=== PATIENT | male | born 1955 | race African-American/Black ===

== ENCOUNTER 2017-07-28 12:08 | Inpatient (IN) | payer MEDICAID ==
[~2017-07-28] VITALS: Ht 175.3 cm; Wt 95.6 kg
[2017-07-28 12:48] LABS: GLUCOSE,POINT OF CARE 128 MG/DL (70-110)
[2017-07-28] MEDS ORDERED: IPRATROPIUM BROMIDE 0.5 MG/2.5 ML NEB SOLUTION NEB ONE (13:15)
[2017-07-28] MEDS ORDERED: ALBUTEROL SULFATE HFA 90 MCG/PUFF 8 GM INHALER IH ONE (13:15)
[2017-07-28] MEDS ORDERED: OSELTAMIVIR PHOSPHATE 75 MG CAPSULE PO ONE (13:15)
[2017-07-28] MEDS ORDERED: ALBUTEROL SULFATE 2.5 MG/0.5 ML NEB SOLUTION NEB ONE (13:15)
[2017-07-28 13:16] LABS: BASOPHILS % (AUTO) 0.2 % (0.0-2.0); EOSINOPHILS % (AUTO) 0.1 % (1.0-6.0); HEMATOCRIT 47.4 % (41-53); HEMOGLOBIN 16.3 g/dL (13.5-17.5); LYMPHOCYTES # (AUTO) 1.4 K/uL (1.0-4.8); LYMPHOCYTES % (AUTO) 14.4 % (22.0-44.0); MEAN CORPUSCULAR HEMOGLOBIN 28.6 pg (26.0-34.0); MEAN CORPUSCULAR HGB CONC 34.4 G/dL (31.0-37.0); MEAN CORPUSCULAR VOLUME 83 fL (80-100); MONOCYTES # (AUTO) 0.7 K/uL (0.1-1.0); NEUTROPHILS # (AUTO) 7.4 K/uL (1.8-7.7); NEUTROPHILS % (AUTO) 78.3 % (40.0-70.0); PLATELET COUNT (AUTO) 171 K/uL (150-450); RED BLOOD CELL COUNT(AUTO) 5.68 MIL/uL (4.50-5.90); RED CELL DISTRIBUTION WIDTH 14.4 % (11.5-14.5)
[2017-07-28 13:22] LABS: CALCIUM, TOTAL 9.3 mg/dL (8.8-10.5); CREATININE 1.65 mg/dL (0.60-1.30)
[2017-07-28 13:27] LABS: BILIRUBIN,TOTAL 0.8 mg/dL (0.1-1.0); TOTAL PROTEIN, SERUM 8.6 g/dL (6.4-8.2)
[2017-07-28 13:40] LABS: INFLUENZA TYPE A NEGATIVE FOR TYPE A (NEGATIVE); INFLUENZA TYPE B NEGATIVE FOR TYPE B (NEGATIVE)
[2017-07-28 14:18] LABS: ALBUMIN 2.8 g/dL (3.4-5.0)
[2017-07-28] MEDS ORDERED: SODIUM CHLORIDE 0.9% 1,000 ML IV ONE ×2 (14:30→15:45)
[2017-07-28] MEDS ORDERED: LEVOFLOXACIN 750 MG/D5% WATER 150 ML IV ONE (14:30)
[2017-07-28] MEDS ORDERED: ACETAMINOPHEN 325 MG TABLET PO PRN ×2 (14:45→15:45)
[2017-07-28] MEDS ORDERED: ONDANSETRON HCL 4 MG/2 ML VIAL IVP PRN ×2 (14:45→15:45)
[2017-07-28] MEDS ORDERED: 0.9% SODIUM CHLORIDE 10 ML SYRINGE IVP PRN (14:45)
[2017-07-28 15:07] LABS: MAGNESIUM 2.3 mg/dL (1.80-2.40); PHOSPHORUS 2.5 mg/dL (2.5-4.9)
[2017-07-28] MEDS ORDERED: IPRATROPIUM BROMIDE 0.5 MG/2.5 ML NEB SOLUTION NEB PRN (15:45)
[2017-07-28] MEDS ORDERED: MAGNESIUM HYDROXIDE SUSPENSION 30 ML UDCUP PO PRN (15:45)
[2017-07-28] MEDS ORDERED: ZOLPIDEM TARTRATE 5 MG TABLET PO PRN (15:45)
[2017-07-28] MEDS ORDERED: ALBUTEROL SULFATE 2.5 MG/0.5 ML NEB SOLUTION NEB PRN (15:45)
[2017-07-28] MEDS ORDERED: MORPHINE SULFATE 4 MG/ML SYRINGE IVP PRN (15:45)
[2017-07-28] MEDS ORDERED: HYDROCODONE/ACETAMINOPHEN 5-325 MG TABLET PO PRN (15:45)
[2017-07-28] MEDS ORDERED: BISACODYL 10 MG RECTAL RECTAL SUPPOSITORY PR PRN (15:45)
[2017-07-28] MEDS: HEPARIN SODIUM,PORCINE 5,000 UNITS/ML VIAL SQ SCH (16:03)
[2017-07-28] MEDS: OSELTAMIVIR PHOSPHATE 75 MG CAPSULE PO SCH (22:30)
[2017-07-28] MEDS: DOCUSATE SODIUM 100 MG CAPSULE PO SCH (22:30)
[2017-07-29 01:19] VITALS: BP 134/67
[2017-07-29] MEDS: HEPARIN SODIUM,PORCINE 5,000 UNITS/ML VIAL SQ SCH ×2 (01:26→08:40)
[2017-07-29] MEDS ORDERED: INFLUENZA VIRUS VACCINE QVS 2017-18 (3YR+)/PF 60 MCG/0.5 ML SYRINGE IM ONE (01:45)
[2017-07-29] MEDS ORDERED: PNEUMOCOCCAL VACCINE POLYVALENT 0.5 ML VIAL [PPSV23] IM ONE (01:45)
[2017-07-29 05:12] VITALS: BP 122/72
[2017-07-29 07:08] LABS: BASOPHILS % (AUTO) 0.2 % (0.0-2.0); EOSINOPHILS % (AUTO) 0.2 % (1.0-6.0); HEMOGLOBIN 14.1 g/dL (13.5-17.5); LYMPHOCYTES # (AUTO) 2.1 K/uL (1.0-4.8); LYMPHOCYTES % (AUTO) 24.6 % (22.0-44.0); MEAN CORPUSCULAR HEMOGLOBIN 28.5 pg (26.0-34.0); MEAN CORPUSCULAR HGB CONC 34.4 G/dL (31.0-37.0); MEAN CORPUSCULAR VOLUME 83 fL (80-100); MONOCYTES # (AUTO) 0.9 K/uL (0.1-1.0); MONOCYTES % (AUTO) 10.4 % (2.0-9.0); NEUTROPHILS # (AUTO) 5.4 K/uL (1.8-7.7); NEUTROPHILS % (AUTO) 64.6 % (40.0-70.0); PLATELET COUNT (AUTO) 170 K/uL (150-450); RED BLOOD CELL COUNT(AUTO) 4.94 MIL/uL (4.50-5.90); RED CELL DISTRIBUTION WIDTH 14.3 % (11.5-14.5)
[2017-07-29 07:35] VITALS: BP 120/75
[2017-07-29 07:43] LABS: ALANINE AMINOTRANSFERASE 65 U/L (12-78); ALBUMIN 2.4 g/dL (3.4-5.0); ALKALINE PHOSPHATASE 55 U/L (46-116); ANION GAP 8 mmol/L (8-16); ASPARTATE AMINOTRANSFERASE 61 U/L (15-37); BILIRUBIN,TOTAL 0.6 mg/dL (0.1-1.0); CALCIUM, TOTAL 8.5 mg/dL (8.8-10.5); CARBON DIOXIDE 26 mmol/L (22-29); CHLORIDE 105 mmol/L (98-107); CREATININE 1.25 mg/dL (0.60-1.30); GLOMERULAR FILTR. RATE CALC > 60 mL/min (>60); GLUCOSE,RANDOM 89 mg/dL (70-110); POTASSIUM 3.9 mmol/L (3.5-5.1); SODIUM SERUM 139 mmol/L (136-145); UREA NITROGEN, BLOOD 18 mg/dL (7-18)
[2017-07-29] MEDS: DOCUSATE SODIUM 100 MG CAPSULE PO SCH (08:40)
[2017-07-29] MEDS ORDERED: PANTOPRAZOLE SODIUM 40 MG DR TABLET PO SCH (09:00)
[2017-07-29] MEDS: OSELTAMIVIR PHOSPHATE 75 MG CAPSULE PO SCH (09:10)
[2017-07-29 11:37] VITALS: BP 138/59
[2017-07-29] MEDS ORDERED: OSEL75 PO (12:29)
[2017-07-29] MEDS ORDERED: LEVO500 PO (12:29)
[2017-07-29] MEDS ORDERED: LEVOFLOXACIN 750 MG/D5% WATER 150 ML IV SCH (14:00)
== END 2017-07-29 14:04 | disposition home or self-care (01) | DRG 139 ==
LOC: EMS 12:10 → 6N 23:30
PROVIDERS: ADMIT Internal Medicine; ATTEND Internal Medicine
PROC: 3E0234Z Introduction of Serum, Toxoid and Vaccine into Muscle, Percutaneous Approach (ICD-10-PCS; principal; 2017-07-29)
PROC: 3E0234Z Introduction of Serum, Toxoid and Vaccine into Muscle, Percutaneous Approach (ICD-10-PCS; 2017-07-29)
DX: J18.9 Pneumonia, unspecified organism (principal); N17.0 Acute kidney failure with tubular necrosis; R73.9 Hyperglycemia, unspecified; F17.210 Nicotine dependence, cigarettes, uncomplicated; Z71.6 Tobacco abuse counseling; Z23 Encounter for immunization
CPT/HCPCS: 71046; 82962; 83735; 84100; 87040; 87804; 90471; 93005; 94640; J1644; J1956; J3535; J7030

== ENCOUNTER 2023-03-02 09:03 | Emergency (ER) | payer MEDICARE, OTHER ==
[~2023-03-02] VITALS: Ht 177.8 cm; Wt 99.0 kg
[~2023-03-02 09:03] MED LIST: LEVO-72 PO; OSEL75 PO
[2023-03-02 09:09] VITALS: TEMP 98.2
[2023-03-02] MEDS ORDERED: KETOROLAC TROMETHAMINE 60 MG/2 ML VIAL IM ONE (09:45)
[2023-03-02] MEDS ORDERED: METHOCARBAMOL 500 MG TABLET PO ONE (09:45)
[2023-03-02] MEDS ORDERED: METH-659 PO (11:30)
[2023-03-02] MEDS ORDERED: IBUP-1492 PO (11:30)
[2023-03-02] MEDS ORDERED: PERCT PO (11:31)
[2023-03-02 11:45] VITALS: BP 150/82; PULSE 65; RESP 12
== END 2023-03-02 11:51 | disposition home or self-care (01) ==
LOC: EMS 09:04
DX: S29.011A Strain of muscle and tendon of front wall of thorax, initial encounter (principal); F17.210 Nicotine dependence, cigarettes, uncomplicated; X58.XXXA Exposure to other specified factors, initial encounter; Y93.89 Activity, other specified; Y92.89 Other specified places as the place of occurrence of the external cause; Y99.8 Other external cause status
CPT/HCPCS: 99283; 71045; 96372; J1885

== ENCOUNTER 2023-08-23 14:28 | Inpatient (IN) | payer MEDICARE, OTHER ==
[~2023-08-23] VITALS: Ht 177.8 cm; Wt 101.0 kg
[~2023-08-23 14:28] MED LIST changes: +IBUP-1492 PO; -LEVO-72 PO; +METH-659 PO; -OSEL75 PO; +PERCT PO
[2023-08-23] MEDS: NITROGLYCERIN 2% (1 GM=INCH) OINTMENT PACKET TP ONE (15:00)
[2023-08-23] MEDS: FUROSEMIDE 20 MG/2 ML VIAL IVP ONE (15:01)
[2023-08-23 15:18] LABS: BASOPHILS % (AUTO) 0.6 % (0.0-2.0); EOSINOPHILS % (AUTO) 1.9 % (1.0-6.0); HEMATOCRIT 36.9 % (41-53); HEMOGLOBIN 12.3 g/dL (13.5-17.5); LYMPHOCYTES # (AUTO) 1.5 K/uL (1.0-4.8); LYMPHOCYTES % (AUTO) 18.2 % (22.0-44.0); MEAN CORPUSCULAR HEMOGLOBIN 27.9 pg (26.0-34.0); MEAN CORPUSCULAR HGB CONC 33.4 G/dL (31.0-37.0); MEAN CORPUSCULAR VOLUME 84 fL (80-100); MONOCYTES # (AUTO) 0.8 K/uL (0.1-1.0); MONOCYTES % (AUTO) 9.3 % (2.0-9.0); NEUTROPHILS # (AUTO) 5.6 K/uL (1.8-7.7); PLATELET COUNT (AUTO) 268 K/uL (150-450); RED BLOOD CELL COUNT(AUTO) 4.41 MIL/uL (4.50-5.90); RED CELL DISTRIBUTION WIDTH 14.8 % (11.5-14.5); WHITE BLOOD COUNT (AUTO) 8.1 K/uL (4.5-11.0)
[2023-08-23 15:27] LABS: ANION GAP 9 mmol/L (8-16); CALCIUM, TOTAL 8.3 mg/dL (8.8-10.5); CARBON DIOXIDE 24 mmol/L (22-29); CHLORIDE 107 mmol/L (98-107); CREATININE 1.03 mg/dL (0.60-1.30); GLOMERULAR FILTR. RATE CALC > 60 mL/min (>60); GLUCOSE,RANDOM 87 mg/dL (70-110); POTASSIUM 3.9 mmol/L (3.5-5.1); SODIUM SERUM 140 mmol/L (136-145); UREA NITROGEN, BLOOD 15 mg/dL (7-18)
[2023-08-23 15:30] LABS: PROTHROMBIN TIME 10.9 SEC (9.4-11.6)
[2023-08-23 15:35] LABS: APPEARANCE,URINE CLEAR (CLEAR); BILIRUBIN,URINE NEGATIVE (NEGATIVE); COLOR,URINE COLORLESS (YELLOW); GLUCOSE, URINE (UA) NEGATIVE (NEGATIVE); KETONES,URINE NEGATIVE (NEGATIVE); LEUKOCYTE ESTERASE ,URINE NEGATIVE (NEGATIVE); NITRATE,URINE NEGATIVE (NEGATIVE); OCCULT BLOOD,URINE NEGATIVE (NEGATIVE); PH,URINE 6.5 (5.0-8.0); PROTEIN,URINE NEGATIVE (NEGATIVE); UROBILINOGEN,URINE <=1.0 mg/dL (<=1.0)
[2023-08-23 15:40] LABS: TROPONIN I-HIGH SENSITIVITY 142 ng/L (<76)
[2023-08-23 15:44] LABS: B-TYPE NATRIURETIC PEPTIDE 909 pg/mL (0-100)
[2023-08-23 15:52] LABS: ALANINE AMINOTRANSFERASE 53 U/L (12-78); ALBUMIN 3.1 g/dL (3.4-5.0); ALKALINE PHOSPHATASE 72 U/L (46-116); ASPARTATE AMINOTRANSFERASE 34 U/L (15-37); BILIRUBIN,TOTAL 0.7 mg/dL (0.1-1.0); CREATINE KINASE, TOTAL ONLY 392 U/L (39-308); TOTAL PROTEIN, SERUM 7.6 g/dL (6.4-8.2)
[2023-08-23] MEDS ORDERED: ONDANSETRON HCL 4 MG/2 ML VIAL IVP PRN (16:15)
[2023-08-23] MEDS ORDERED: ALBUTEROL SULFATE 2.5 MG/0.5 ML NEB SOLUTION NEB PRN (16:15)
[2023-08-23] MEDS ORDERED: MAGNESIUM HYDROXIDE SUSPENSION 30 ML UDCUP PO PRN (16:15)
[2023-08-23] MEDS ORDERED: ZOLPIDEM TARTRATE 5 MG TABLET PO PRN (16:15)
[2023-08-23] MEDS ORDERED: CloNIDine HCL 0.1 MG TABLET PO PRN (16:15)
[2023-08-23] MEDS: LISINOPRIL 10 MG TABLET PO SCH (16:39)
[2023-08-23 20:30] VITALS: BP 148/96; PULSE 92; RESP 20; TEMP 98.1; O2SAT 98
[2023-08-23] MEDS: DOCUSATE SODIUM 100 MG CAPSULE PO SCH (20:57)
[2023-08-23 21:27] LABS: TROPONIN I-HIGH SENSITIVITY 143 ng/L (<76)
[2023-08-24 00:30] VITALS: BP 151/105; PULSE 90; RESP 20; TEMP 98.4; O2SAT 99
[2023-08-24] MEDS: HEPARIN SODIUM,PORCINE 5,000 UNITS/ML VIAL SQ SCH (01:13)
[2023-08-24 04:00] VITALS: BP 146/87; PULSE 85; RESP 18; TEMP 98.5
[2023-08-24 08:00] VITALS: BP 145/89; PULSE 77; RESP 18; TEMP 98
[2023-08-24 08:41] LABS: ALCOHOL, URINE DRUG SCREEN NEGATIVE (NEGATIVE); AMPHET/METH SCREEN,URINE POSITIVE (NEGATIVE); BARBITURATE SCREEN, URINE NEGATIVE (NEGATIVE); BENZODIAZEPINES SCREEN,URINE NEGATIVE (NEGATIVE); CANNABINOID SCREEN,URINE NEGATIVE (NEGATIVE); COCAINE SCREEN,URINE NEGATIVE (NEGATIVE); METHADONE SCREEN, URINE NEGATIVE (NEGATIVE); OPIATE SCREEN,URINE NEGATIVE (NEGATIVE); PHENCYCLIDINE SCREEN,URINE NEGATIVE (NEGATIVE)
[2023-08-24] MEDS: ASPIRIN 81 MG CHEWABLE TABLET PO SCH (09:57)
[2023-08-24] MEDS: FUROSEMIDE 20 MG/2 ML VIAL IVP SCH (09:57)
[2023-08-24] MEDS: FAMOTIDINE 20 MG TABLET PO SCH (09:58)
[2023-08-24 12:00] VITALS: BP 134/98; PULSE 82; RESP 18; TEMP 98
[2023-08-24 12:43] LABS: INFLUENZA A-RTPCR,COMBO NEGATIVE (NEGATIVE); INFLUENZA B-RTPCR,COMBO NEGATIVE (NEGATIVE); RESPIRATORY SYNCYTIAL VRS-PCR NEGATIVE (NEGATIVE); SARS COVID19 RTPCR, COMBO NEGATIVE (NEGATIVE)
[2023-08-24 16:00] VITALS: BP 149/104; PULSE 84; RESP 18; TEMP 98.9
[2023-08-24 20:14] VITALS: BP 133/70; PULSE 66; RESP 18; TEMP 99.4
[2023-08-24] MEDS: ACETAMINOPHEN 325 MG TABLET PO PRN (22:00)
[2023-08-25] VITALS (7 sets, daily range): BP systolic 131–150; BP diastolic 75–98; PULSE 61–74; RESP 18–20; TEMP 97.6–98.6
[2023-08-25] MEDS ORDERED: LISINOPRIL 5 MG TABLET PO SCH (17:00)
[2023-08-26 00:15] VITALS: BP 143/98; PULSE 64; RESP 20; TEMP 98.6
[2023-08-26 04:00] VITALS: BP 151/84; PULSE 79; RESP 18; TEMP 98.1
[2023-08-26 06:59] LABS: HEMATOCRIT 38.6 % (41-53); LYMPHOCYTES # (AUTO) 2.1 K/uL (1.0-4.8); LYMPHOCYTES % (AUTO) 28.2 % (22.0-44.0); MEAN CORPUSCULAR HEMOGLOBIN 28.1 pg (26.0-34.0); MEAN CORPUSCULAR HGB CONC 33.7 G/dL (31.0-37.0); MEAN CORPUSCULAR VOLUME 83 fL (80-100); MONOCYTES # (AUTO) 0.8 K/uL (0.1-1.0); MONOCYTES % (AUTO) 11.4 % (2.0-9.0); NEUTROPHILS # (AUTO) 4.1 K/uL (1.8-7.7); NEUTROPHILS % (AUTO) 55.4 % (40.0-70.0); PLATELET COUNT (AUTO) 312 K/uL (150-450); RED BLOOD CELL COUNT(AUTO) 4.62 MIL/uL (4.50-5.90); RED CELL DISTRIBUTION WIDTH 14.3 % (11.5-14.5); WHITE BLOOD COUNT (AUTO) 7.4 K/uL (4.5-11.0)
[2023-08-26 07:03] LABS: ANION GAP 10 mmol/L (8-16); CALCIUM, TOTAL 8.6 mg/dL (8.8-10.5); CARBON DIOXIDE 25 mmol/L (22-29); CHLORIDE 105 mmol/L (98-107); CREATININE 1.05 mg/dL (0.60-1.30); GLOMERULAR FILTR. RATE CALC > 60 mL/min (>60); GLUCOSE,RANDOM 99 mg/dL (70-110); POTASSIUM 4.2 mmol/L (3.5-5.1); SODIUM SERUM 140 mmol/L (136-145); UREA NITROGEN, BLOOD 20 mg/dL (7-18)
[2023-08-26 07:28] LABS: TROPONIN I-HIGH SENSITIVITY 119 ng/L (<76)
[2023-08-26] MEDS: EMPAGLIFLOZIN 10 MG TABLET PO SCH (07:47)
[2023-08-26] MEDS: LOSARTAN POTASSIUM 25 MG TABLET PO SCH (07:47)
[2023-08-26] MEDS: SPIRONOLACTONE 25 MG TABLET PO SCH (07:48)
[2023-08-26] MEDS: METOPROLOL SUCCINATE 25 MG ER TABLET PO SCH (07:48)
[2023-08-26 08:02] VITALS: BP 137/85; PULSE 59; RESP 16; TEMP 98.4
[2023-08-26] MEDS ORDERED: FURO20 PO (09:43)
[2023-08-26] MEDS ORDERED: EMPA10TA3 PO (09:44)
[2023-08-26] MEDS ORDERED: LOSA-381 PO (09:45)
[2023-08-26] MEDS ORDERED: SPIR-37 PO (09:45)
[2023-08-26] MEDS ORDERED: METO25XL PO (09:47)
[2023-08-27] MEDS ORDERED: FUROSEMIDE 20 MG TABLET PO SCH (09:00)
== END 2023-08-26 11:45 | disposition home or self-care (01) | DRG 291 ==
LOC: EMS 14:28 → 5S 16:43
PROVIDERS: ADMIT Internal Medicine; ATTEND Internal Medicine
DX: I11.0 Hypertensive heart disease with heart failure (principal); I50.23 Acute on chronic systolic (congestive) heart failure; F17.200 Nicotine dependence, unspecified, uncomplicated; Z20.822 Contact with and (suspected) exposure to COVID-19; E66.9 Obesity, unspecified; I35.0 Nonrheumatic aortic (valve) stenosis; F15.10 Other stimulant abuse, uncomplicated; Z68.31 Body mass index [BMI] 31.0-31.9, adult
CPT/HCPCS: 0241U; 71045; 80048; 80053; 80307; 81003; 82550; 83880; 84484; 85025; 85610; 85730; 93005; 93306; 99285; J1644; J1940; Q9967; 36415-L1; 36415-TC